=== PATIENT | male | born 1965 | race African-American/Black ===

== ENCOUNTER 2018-08-05 12:46 | Outpatient (CLI) ==
[2013-10-28 12:11] VITALS: BMI 28.5
== END 2018-08-05 13:02 | disposition short-term general hospital (02) ==
LOC: AMBL 12:46
PROVIDERS: ATTEND Internal Medicine
DX: R40.20 Unspecified coma (principal); R29.810 Facial weakness; R53.1 Weakness; Z86.73 Personal history of transient ischemic attack (TIA), and cerebral infarction without residual deficits